=== PATIENT | male | born 1995 | race Caucasian/White ===

== ENCOUNTER 2025-06-25 09:20 | Emergency (ER) | payer MEDICAID ==
[~2025-06-25] VITALS: Ht 172.7 cm; Wt 90.0 kg
[2025-06-25 09:26] VITALS: O2SAT 100
[2025-06-25] MEDS: TETANUS, DIPHTHERIA, PERTUSSIS VAC/PF 0.5ML (>10YR OLD) IM ONE (10:45)
[2025-06-25] MEDS: LIDOCAINE HCL 1% 20ML VIAL INFIL ONE (11:28)
[2025-06-25] MEDS ORDERED: BO1 TP (12:58)
[2025-06-25] MEDS: BACITRACIN ZINC OINT UDPKT TOP ONE (13:20)
[2025-06-25 13:25] VITALS: BP 109/80; PULSE 65; RESP 19; TEMP 37.1; O2SAT 100
== END 2025-06-25 13:28 | disposition home or self-care (01) ==
LOC: ER 09:20
DX: S81.811A Laceration without foreign body, right lower leg, initial encounter (principal); W01.0XXA Fall on same level from slipping, tripping and stumbling without subsequent striking against object, initial encounter; Y93.89 Activity, other specified; Y92.89 Other specified places as the place of occurrence of the external cause; Y99.0 Civilian activity done for income or pay
CPT/HCPCS: 99283; 73590; 90715; 12002; 90471; J2003